=== PATIENT | female | born 1980 | race Caucasian/White ===

== ENCOUNTER → 2023-10-01 | Day surgery (SDC) | payer BC ==
--- NOTE | 2023-10-09 08:45 | MM ---
Reason for Exam: Post Procedure Mammogram. Patient History: Menarche at age 12. Patient has no children. 2000, Benign Excisional Biopsy on the left side. Risk Values: Chrissie 5 year model risk: 1.2%. NCI Lifetime model risk: 13.2%. Prior Study Comparison: 01/17/2006 Right Diagnostic Ultrasound, [facility]. Tissue Density: Left: The breasts are heterogeneously dense, which may obscure small masses. Pathology Description: Location: 2 o'clock, upper outer quadrant. Marker Left Behind. Needle Type: Mammotome Cores: 4 Skin Nicks: 1 Gauge: 13 Images are reviewed. On current examination this appears more solid than cystic although cyst aspiration with be attempted initially. The procedure of ultrasound guided core biopsy was explained to the patient. Benefits, alternatives, and risks were discussed. An informed consent was then obtained. A timeout was performed. The patient was consented for both cyst aspiration and biopsy. The patient was placed in supine positioning for imaging and for the procedure. The overlying skin was prepped and draped in usual sterile fashion. Lidocaine was used as anesthetic into the skin and subcutaneous tissue up to area of concern in the left breast. No aspiration could be performed during the anesthesia. This procedure was converted to biopsy at this time. A small skin roslaind was made with surgical scalpel. Under ultrasound guidance, a 12-gauge vacuum assisted biopsy gun device was used to obtain 4 core samples. A biopsy clip was left in lesion. Hydromark coil core marker was placed. The patient tolerated the procedure well without any immediate complication. The patient was kept in the radiology department for short stay after the procedure and then discharged home in stable condition. Postprocedure mammogram: The patient was transferred to mammography for physician ordered post procedure mammogram for clip placement verification. Post procedure mammogram: Core marker is in the upper outer mid left breast. Impression: Successful ultrasound guided core biopsy of area of concern in the left breast, full pathology results to follow. Recommendations: 1. Recommendations are pending pathology results. Pathology Results: Result: Benign, Fibroadenoma. Pathology and radiology were reviewed. Findings are concordant. LEFT BREAST, 2:00, ULTRASOUND GUIDED NEEDLE CORE BIOPSY: Fibroadenoma. Overall Assessment: Benign Assessment: MG diagnostic mammo LT wo CAD. - Left: Benign, BI-RAD 2. Management: Diagnostic Mammogram of the left breast in 6 months. Electronically signed and approved by: Ab Mina D.O. Radiologis
== END ==
LOC: RADUSWWP 12:47
PROVIDERS: ATTEND Family Medicine
DX: D24.2 Benign neoplasm of left breast (principal); R92.8 Other abnormal and inconclusive findings on diagnostic imaging of breast
CPT/HCPCS: 88305; 77065; 19083; A4648

== ENCOUNTER → 2024-04-04 | Outpatient (CLI) | payer BC ==
--- NOTE | 2024-04-04 08:06 | MM ---
Reason for Exam: Follow-up at short interval from prior study. Last screening mammogram was performed 7 month(s) ago. Patient History: Menarche at age 12. First Full-Term at age 25. Premenopausal. 10/01/2023, Benign US biopsy breast VAD LT on the left side. 1999, Benign Excisional Biopsy on the left side. Risk Values: Chrissie 5 year model risk: 2.1%. NCI Lifetime model risk: 16.9%. Prior Study Comparison: 01/17/2006 Right Diagnostic Ultrasound, [facility]. 05/16/2021 Bilateral Screening Mammogram, Unknown. 08/14/2023 Bilateral Screening Mammogram, Unknown. 10/01/2023 Left MG diagnostic mammo LT wo CAD., [facility]. Tissue Density: Left: The breasts are heterogeneously dense, which may obscure small masses. Findings: Analyzed By CAD. Previously sampled fibroadenomas redemonstrated with microclip marker. No new masses. No suspicious microcalcifications. Overall Assessment: Benign, BI-RAD 2 Management: Screening Mammogram of both breasts in 6 months. . Results were given to the patient verbally at the time of exam. Patient should continue monthly self-breast exams. A clinical breast exam by your physician is recommended on an annual basis. This exam should not preclude additional follow-up of suspicious palpable abnormalities. Note on Chrissie scores and lifetime risk: 1. A Chrissie score greater than 3% is considered moderate risk. If this is the case, consider specialist referral to assess eligibility for a risk reducing agent. 2. If overall lifetime risk for the development of breast cancer is 20% or higher, the patient may qualify for future screening with alternating mammogram and breast MRI. [facility], , 04/04/2024 8:02 AM. Electronically signed and approved by: Kevyn Fatima M.D. Radiologis
== END | disposition home or self-care (01) ==
LOC: RADMAMWWP 07:09
PROVIDERS: ATTEND Family Medicine
DX: R92.8 Other abnormal and inconclusive findings on diagnostic imaging of breast (principal); R92.333 Mammographic heterogeneous density, bilateral breasts
CPT/HCPCS: 77061; 77065